=== PATIENT | female | born 1945 | race Caucasian/White ===

== ENCOUNTER 2020-09-18 10:43 | Outpatient (CLI) | payer MEDICARE ==
[~2020-09-18 10:43] MED LIST: DILTIAZEM PO; FURO-93 PO; GABAPENTIN PO; LOSA25TA25 PO; NORT10CA PO; SINGULAIR PO; [UNRECOGNIZED DRUG - OTHER]
== END 2020-09-18 23:59 | disposition home or self-care (01) ==
LOC: RAD 10:43
PROVIDERS: ATTEND Nurse Practitioner Family
DX: N28.1 Cyst of kidney, acquired (principal); N26.1 Atrophy of kidney (terminal); R10.12 Left upper quadrant pain; K58.0 Irritable bowel syndrome with diarrhea; R11.0 Nausea
CPT/HCPCS: 76700

== ENCOUNTER 2021-01-27 10:04 | Outpatient (CLI) | payer MEDICARE ==
[2021-01-27] MEDS ORDERED: OMNIPAQUE 350 MG/ML, 150 ML BOTTLE ONE (11:41)
== END 2021-01-27 23:59 | disposition home or self-care (01) ==
LOC: CFH 10:04
PROVIDERS: ATTEND Physician Assistant
DX: N28.1 Cyst of kidney, acquired (principal); J98.4 Other disorders of lung; R10.12 Left upper quadrant pain; Q89.09 Congenital malformations of spleen
CPT/HCPCS: 74177; Q9967

== ENCOUNTER 2021-01-31 07:14 | Emergency (ER) | payer MEDICARE ==
[~2021-01-31] VITALS: Ht 154.9 cm; Wt 101.0 kg
[2021-01-31 07:18] VITALS: BP 146/79
[2021-01-31] MEDS ORDERED: SODIUM CHLORIDE FLUSH 10ML SYR IVF ONE (07:30)
[2021-01-31 08:37] LABS: BASOPHILS % (AUTO) 1 % (0-1); EOSINOPHILS % (AUTO) 1 % (1-7); LYMPHOCYTES % (AUTO) 28 % (22-44); MEAN CORPUSCULAR HGB CONC 33.7 g/dL (32.4-35.8); MEAN PLATELET VOLUME 6.9 fL (7.4-10.4); MONOCYTES % (AUTO) 7 % (2-9); NEUTROPHILS % (AUTO) 63 % (42-75); PLATELET COUNT 246 x10^3/uL (130-400); RED BLOOD COUNT 4.31 x10^6/uL (3.82-5.3)
[2021-01-31 08:41] LABS: ALANINE AMINOTRANSFERASE 21 U/L (12-78); ANION GAP 7 mmol/L (5-15); CALCIUM 8.3 mg/dL (8.5-10.1); CHLORIDE 109 mmol/L (98-107); CREATININE 0.97 mg/dL (0.55-1.02)
[2021-01-31 08:45] LABS: ALKALINE PHOSPHATASE 89 U/L (45-117); BILIRUBIN,TOTAL 0.3 mg/dL (0.2-1.0); TOTAL PROTEIN 7.1 g/dL (6.4-8.2); TROPONIN I < 0.015 ng/mL (0.000-0.045)
[2021-01-31] MEDS ORDERED: OMNIPAQUE 350 MG/ML, 100ML BOTTLE ONE (13:17)
== END 2021-01-31 13:45 | disposition home or self-care (01) ==
LOC: ED 13:10
DX: G89.29 Other chronic pain (principal); R10.12 Left upper quadrant pain; I10 Essential (primary) hypertension; I48.91 Unspecified atrial fibrillation
CPT/HCPCS: 36415; 71045; 74177; 80053; 83690; 84484; 85025; 99285; Q9967